=== PATIENT | male | born 1975 | race American Indian/Alaskan Native ===

== ENCOUNTER 2016-11-26 16:57 | Emergency (ER) | payer OTHER ==
[2016-11-26 17:12] VITALS: BP 144/87
[2016-11-26] MEDS ORDERED: Bacitracin Oint 1 GM U/D Packet TOP ONE (17:27)
[2016-11-26] MEDS ORDERED: Lidocaine 1% 30 ML SDV INJECT ONE (17:27)
--- NOTE | 2016-11-26 18:19 | EDM.PDOC ---
Scribed by Anabel Torres 11/26/16 1554 for Lizandro Corral MD ED HPI GENERAL MEDICAL PROBLEM - General Chief Complaint: Laceration Stated Complaint: CUT FINGER, [id number] Time Seen by Provider: 11/26/16 17:18 Source of Information: Reports: Patient, RN Notes Reviewed History Limitations: Reports: No Limitations - History of Present Illness INITIAL COMMENTS - FREE TEXT/NARRATIVE: Patient complains of cut left 2nd and 3rd fingers with a battery powered circular saw. Denies any other injury. Last tetanus vaccine 6 years ago. Onset: Today Location: Reports: Upper Extremity, Left Quality: Reports: Ache Severity: Moderate Improves with: Reports: None Worsens with: Reports: None Associated Symptoms: Reports: No Other Symptoms - Related Data Allergies Allergy/AdvReac Type Severity Reaction Status Date / Time No Known Allergies Allergy Verified 11/26/16 17:09 Home Meds: Home Meds . [No Known Home Meds] 10/14/14 [History] Past Medical History - Past Health History Medical/Surgical History: Denies Medical/Surgical History - Past Surgical History Other Musculoskeletal Surgeries/Procedures:: knee surgery Social & Family History - Family History Family Medical History: Noncontributory - Tobacco Use Smoking Status *Q: Never Smoker Second Hand Smoke Exposure: No - Caffeine Use Caffeine Use: Reports: Soda - Recreational Drug Use Recreational Drug Use: No ED ROS GENERAL - Review of Systems Review Of Systems: ROS reveals no pertinent complaints other than HPI. ED EXAM, SKIN/RASH Exam: See Below Exam Limited By: No Limitations General Appearance: Alert, WD/WN, No Apparent Distress Eye Exam: Bilateral Eye: Normal Inspection Nose: Normal Inspection, Normal Mucosa, No Blood Throat/Mouth: Normal Inspection, Normal Lips, Normal Teeth, Normal Gums, Normal Oropharynx, Normal Voice, No Airway Compromise Head: Atraumatic, Normocephalic Neck: Normal Inspection, Supple, Non-Tender, Full Range of Motion Respiratory/Chest: No Respiratory Distress Cardiovascular: Normal Peripheral Pulses (at bilateral upper extremities.) Back Exam: Normal Inspection, Full Range of Motion, NT Extremities: Other (Irregular superficial laceration and abrasions at left distal 2nd finger and irregular 1.5cm irregular laceration to depth of the subcutaneous tissue without foreign body. No active bleeding.) Neurological: Alert, Oriented, CN II-XII Intact, Normal Cognition, Normal Gait, Normal Reflexes, No Motor/Sensory Deficits Psychiatric: Normal Affect, Normal Mood ED SKIN PROCEDURES - Laceration/Wound Repair Left Distal Finger Lac/Wound length In cm: 1.5 (left 3rd finger) Appearance: Subcutaneous, Irregular, Clean Distal NVT: Neuro & Vascular Intact, No Tendon Injury Anesthetic Type: Local Local Anesthesia - Lidocaine (Xylocaine): 1% Plain Local Anesthetic Volume: 5cc Skin Prep: Chlorhexidine (Hibiciens), Saline Saline Irrigation (cc's): 1,000 Exploration/Debridement/Repair: Wound Explored, In a Bloodless Field, Explored to Base, Moderate Debridement, Minimally Undermined Closed with: Sutures Suture Size: 4-0 # of Sutures: 7 Suture Type: Nylon, Interrupted Drain Placement: No Sterile Dressing Applied: Nurse Tetanus Status Addressed: Yes Complications: No Course - Vital Signs Last Recorded V/S: Last Vital Signs Temp 36.8 C 11/26/16 17:09 Pulse 100 11/26/16 17:09 Resp 18 11/26/16 17:09 BP 144/87 H 11/26/16 17:09 Pulse Ox 96 11/26/16 17:09 - Orders/Labs/Meds Meds: Medications Discontinued Medications Generic Name Dose Route Start Last Admin Trade Name Freq PRN Reason Stop Dose Admin Bacitracin 1 dose 11/26/16 17:27 11/26/16 17:36 Bacitracin Oint 1 Gm TOP 11/26/16 17:28 1 dose ONETIME ONE Administration Lidocaine HCl 30 ml 11/26/16 17:27 11/26/16 17:36 Xylocaine-Mpf 1% INJECT 11/26/16 17:28 30 ml ONETIME ONE Administration Departure - Departure Time of Disposition: 18:17 Disposition: Home, Self-Care 01 Condition: Good Clinical Impression: Laceration of finger of left hand Qualifiers: Encounter type: initial encounter Finger: middle finger Damage to nail status: without damage Foreign body presence: without foreign body Qualified Code(s): S61.213A - Laceration without foreign body of left middle finger without damage to nail, initial encounter - Discharge Information Instructions: Laceration Care, Adult, [id number] Forms: ED Department Discharge Additional Instructions: Follow up in clinic for suture removal in 7 to 10 days. I have read and agree with the documentation that has been completed regarding this visit. By signing this record, I attest that the documentation was completed in my physical presence and is an accurate record of the encounter.
== END 2016-11-26 18:27 | disposition home or self-care (01) ==
LOC: DL.ED 16:57
DX: S61.211A Laceration without foreign body of left index finger without damage to nail, initial encounter (principal); S61.213A Laceration without foreign body of left middle finger without damage to nail, initial encounter; W26.9XXA Contact with unspecified sharp object(s), initial encounter
CPT/HCPCS: 12001; 99282

== ENCOUNTER 2022-12-03 07:03 | Day surgery (SDC) | payer OTHER ==
[~2022-12-03 07:03] MED LIST: Dextrose 5%-0.45% NaCl 1,000 ML IV SCH
[2022-12-03] MEDS ORDERED: Midazolam 1 MG/ML 2 ML SDV IV ONE ×6 (07:04→08:14)
[2022-12-03] MEDS ORDERED: fentaNYL 100 MCG/2 ML SDV IV ONE ×3 (07:04→08:10)
[2022-12-03] MEDS ORDERED: Midazolam 1 MG/ML 2 ML SDV ONE (07:31)
[2022-12-03] MEDS ORDERED: fentaNYL 100 MCG/2 ML SDV ONE (07:32)
[2022-12-03 09:28] VITALS: BP 123/74; PULSE 70
== END 2022-12-03 09:38 | disposition home or self-care (01) ==
LOC: DL.ENDO 07:03
PROVIDERS: ATTEND Internal Medicine Gastroenterology
DX: Z12.11 Encounter for screening for malignant neoplasm of colon (principal); R79.89 Other specified abnormal findings of blood chemistry; E66.09 Other obesity due to excess calories; Z98.890 Other specified postprocedural states; Z90.49 Acquired absence of other specified parts of digestive tract; Z68.41 Body mass index [BMI] 40.0-44.9, adult
CPT/HCPCS: J2250; J3010; J7042